=== PATIENT | male | born 1965 | race Caucasian/White ===

== ENCOUNTER → 2019-05-08 | Outpatient (CLI) | payer OTHER ==
[~2019-05-08] MED LIST: CEPH500 PO; HYDACE5 PO; SULTRIDS PO
== END | disposition home or self-care (01) ==
LOC: LAB 18:52 → LAB SHORT 18:52
DX: S61.213A Laceration without foreign body of left middle finger without damage to nail, initial encounter (principal)
CPT/HCPCS: 87070; 87075; 87077; 87186; 87205

== ENCOUNTER 2019-09-07 19:56 | Emergency (ER) | payer OTHER ==
[~2019-09-07] VITALS: Ht 172.7 cm; Wt 77.1 kg
== END 2019-09-07 21:39 | disposition home or self-care (01) ==
LOC: ER 19:56
DX: K43.9 Ventral hernia without obstruction or gangrene (principal); F17.210 Nicotine dependence, cigarettes, uncomplicated
CPT/HCPCS: 99283

== ENCOUNTER 2019-09-25 17:59 | Emergency (ER) | payer OTHER ==
[~2019-09-25] VITALS: Ht 172.7 cm; Wt 81.7 kg
[2019-09-25 20:47] LABS: BASOPHILS ABSOLUTE AUTO 0.09 K/mm3 (0.00-0.23); BASOPHILS PERCENT AUTO 1 % (0-2); EOSINOPHILS ABSOLUTE AUTO 0.25 K/mm3 (0.00-0.68); EOSINOPHILS PERCENT AUTO 2 % (0-6); Hematocrit 49.8 % (37.0-53.0); Hemoglobin 16.3 g/dL (13.5-17.5); IMMATURE GRAN ABSOLUTE AUTO 0.08 K/mm3 (0.00-0.10); IMMATURE GRAN PERCENT AUTO 1 % (0-1); LYMPHOCYTES ABSOLUTE AUTO 2.15 K/mm3 (0.84-5.20); LYMPHOCYTES PERCENT AUTO 18 % (21-46); MONOCYTES PERCENT AUTO 8 % (4-13); Mean Corpuscular HGB 29.1 pg (26.0-34.0); Mean Corpuscular HGB Conc 32.7 g/dL (31.5-36.5); Mean Corpuscular Volume 89 fL (80-100); Mean Platelet Volume 9.5 fL (9.1-12.4); NEUTROPHILS ABSOLUTE AUTO 8.39 K/mm3 (1.96-9.15); NEUTROPHILS PERCENT AUTO 71 % (41-73); Platelet Count 269 K/mm3 (150-400); RDW Coefficient Variation 14.3 % (11.7-14.2); RDW Standard Deviation 46.7 fL (35.1-46.3); White Blood Cell Count 11.86 K/mm3 (4.00-11.30)
[2019-09-25 21:06] LABS: Alanine Aminotransfer (ALT/SGP 33 U/L (12-78); Albumin, Blood 3.9 g/dL (3.4-5.0); Alk Phos 91 U/L (50-136); Anion Gap 4 mmol/L (6-16); Aspartate Aminotrans (AST/SGOT 17 U/L (12-37); Bilirubin, Total 0.3 mg/dL (0.1-1.0); Blood Urea Nitrogen 14 mg/dL (8-24); Bun/Creatinine Ratio 15.5 (12.0-20.0); CO2, Blood 29 mmol/L (21-32); Calcium, Blood 8.6 mg/dL (8.5-10.1); Chloride, Blood 107 mmol/L (98-108); Globulin, Blood 3.9 g/dL (2.2-4.0); Glomerular Filtration Rate >60 (60-); Glucose, Blood 103 mg/dL (70-99); Potassium, Blood 4.4 mmol/L (3.5-5.5); Sodium, Blood 140 mmol/L (136-145); Total Protein, Blood 7.8 g/dL (6.4-8.2)
== END 2019-09-25 21:41 ==
LOC: ER 17:59
PROVIDERS: Physician Assistant
DX: K42.9 Umbilical hernia without obstruction or gangrene (principal); F17.210 Nicotine dependence, cigarettes, uncomplicated
CPT/HCPCS: 36415; 80053; 83605; 85025; 96374; 99283-25; J1170

== ENCOUNTER 2021-12-19 13:57 | Inpatient (IN) | payer OTHER ==
[~2021-12-19] VITALS: Ht 172.7 cm; Wt 79.4 kg
[2021-12-19 15:36] LABS: BASOPHILS ABSOLUTE AUTO 0.06 K/mm3 (0.00-0.23); BASOPHILS PERCENT AUTO 1 % (0-2); EOSINOPHILS ABSOLUTE AUTO 0.21 K/mm3 (0.00-0.68); EOSINOPHILS PERCENT AUTO 2 % (0-6); Hematocrit 50.3 % (37.0-53.0); IMMATURE GRAN ABSOLUTE AUTO 0.03 K/mm3 (0.00-0.10); IMMATURE GRAN PERCENT AUTO 0 % (0-1); LYMPHOCYTES ABSOLUTE AUTO 2.95 K/mm3 (0.84-5.20); LYMPHOCYTES PERCENT AUTO 31 % (21-46); MONOCYTES ABSOLUTE AUTO 0.76 K/mm3 (0.16-1.47); MONOCYTES PERCENT AUTO 8 % (4-13); Mean Corpuscular HGB 29.9 pg (26.0-34.0); Mean Corpuscular HGB Conc 33.8 g/dL (31.5-36.5); Mean Corpuscular Volume 88 fL (80-100); Mean Platelet Volume 10.1 fL (9.1-12.4); NEUTROPHILS ABSOLUTE AUTO 5.51 K/mm3 (1.96-9.15); NEUTROPHILS PERCENT AUTO 58 % (41-73); Platelet Count 292 K/mm3 (150-400); RDW Coefficient Variation 13.7 % (11.7-14.2); RDW Standard Deviation 44.8 fL (35.1-46.3); Red Blood Cell Count 5.69 M/mm3 (4.30-5.90); White Blood Cell Count 9.52 K/mm3 (4.00-11.30)
[2021-12-19 15:42] LABS: Albumin, Blood 4.2 g/dL (3.4-5.0); Bilirubin, Total 0.5 mg/dL (0.1-1.0); Bun/Creatinine Ratio 17.7 (12.0-20.0); Calcium, Blood 9.7 mg/dL (8.5-10.1); Creatinine, Blood 0.85 mg/dL (0.60-1.20); Globulin, Blood 4.1 g/dL (2.2-4.0); Potassium, Blood 4.2 mmol/L (3.5-5.5); Total Protein, Blood 8.3 g/dL (6.4-8.2)
[2021-12-19 16:11] LABS: International Normalized Ratio 1.03; Prothrombin Time Results 10.8 Sec (9.7-11.5)
--- NOTE | 2021-12-19 16:30 | NUR ---
PT ARRIVED FROM ER [facility]. CONSENTED FOR INCARCERATED HERNIA REPAIR BY DR. STEWART IN ER. PT VERY PAINFUL 03/23 AT [facility]. ABLE TO MOVE EXTREMETIES. PRE-OP CARE PER CHECK LIST DONE. PT'S DAD AT .
--- NOTE | 2021-12-19 19:35 | NUR ---
SHIFT SUMMARY PT ARRIVED TO THE FLOOR AT APPROXIMATELY 1835 FROM PACU, POD0 UMBILICAL HERNIA REPAIR. ORIENTED PT TO HIS ROOM AND WNE THROUGH MEDICAL HISTORY, LAID EYES ON INCISION WHICH HAD SMALL SPOT OF BLOOD OUTLINED BY DRILL PRESS OPERATOR HELPER. GAVE WATER AND JELLO PER DIETARY ORDER. PT DENIES PAIN, BP SHOWS HYPERTENSION WHICH WAS RELAYED TO THE SURGEON WHO WILL PUT IN ORDERS TO ADDRESS IT. NO ACUTE EVENTS THIS SHIFT. CALL LIGHT IN REACH, REPORT GIVEN TO NOC RN AT BEDSIDE.
--- NOTE | 2021-12-19 23:51 | NUR ---
PT REQUESTED SLEEPER.REPORTS WAS TAKING REMERON UP UNTIL 2 MO AGO,ALTHOUGH HE CANT STATE DOSE.PT REPORTS WAS IN RETIREMENT X 1 YR UNTIL 2 MONTHS AGO AND WAS PRESCRIBED IT BY RETIREMENT COUNSELOR AND TOOK IT 11 OF THE 12 MONTHS.PT DOES NOT HAVE A PRIMARY CARE DOCTOR STATES OTHER STRESSFUL SITUATIONS AT HOME AND UNABLE TO SLEEP.ALSO REQUESTING NICOTINE PATCH.HX SMOKING [address] STEWART GAVE ORDER FOR ATIVAN PO X1 AND NICOTINE PATCH X1.
--- NOTE | 2021-12-20 06:45 | NUR ---
SUMMARY PT SLEPT QUIETLY TONIGHT AFTER ATIVAN AND NORCO.HTN INITIALLY ON ASSESSMENT WHICH HAS NOT REQUIRED PRN MEDS AND APPEARS RESOLVING.
--- NOTE | 2021-12-20 18:06 | NUR ---
SUMMARY NO ACUTE CHANGES T/O SHIFT. PT HAS REQUIRED NO PAIN MEDS, RATING PAIN NONE TO 1. TOLERATING DIET; ADVANCED TO REGULAR FOR DINNER. GETTING UP INDEPENDENTLY IN ROOM. PASSING FLATUS. CALL LIGHT IN REACH.
--- NOTE | 2021-12-21 04:26 | NUR ---
SHIFT SUMMARY PT HAS RESTED MOST OF THE NIGHT, PT DID COMPLAIN OF ABD PAIN EARLIER THIS MORNING. HE WAS MEDICATED PER EMAR WITH EFFECT. NICOLE DRESSING INTACT TO ABD C/D/I. PT WITHOUT N/V/D. PT STILL HAS NOT HAD A POST OP BM. TOLERATING PO INTAKE AND AMBULATING WITHOUT DIFFICULTY. BED IN LOWEST POSITION, CALL LIGHT WITHIN REACH. D/C TODAY.
--- NOTE | 2021-12-21 16:41 | NUR ---
NO ACUTE CHANGES T/O SHIFT. PT WAS PAINFUL/SORE UPON WAKING THIS AM. MEDICATED PER ORDERS DURING SHIFT FOR PAIN. DENIED N/V. TOLERATING REGULAR DIET. AMBULATED OUTSIDE THIS AFTERNOON AND TOLERATED WELL. REPORTED HAD BM THIS AFTERNOON. NOW LYING IN BED, READING. DENIES ANY NEEDS AT THIS TIME.
--- NOTE | 2021-12-21 20:00 | NUR ---
PT AMB INDEP IN HALLS. WILL DO ASSESSMENT UPON PT RETURN
--- NOTE | 2021-12-22 05:24 | NUR ---
POD 3 S/P UMBILICAL HERNIA REPAIR. PT VSS. NICOLE DRESSING CDI W/SEAL AND SX MAINTAINED. PT REP PAIN MINIMAL, MED FOR PAIN X1 THIS SHIFT W/REP RELIEF. PT BEENA REG PO, DENIED N/V, REP +FLATUS, REPORTED BM EARLIER IN DAY, IS VOIDING URINE W/O DIFFICULTY. PT AMB INDEP IN HALLS, BEENA WELL.
[2021-12-22] MEDS ORDERED: HYDR1TAB94 PO (09:15)
--- NOTE | 2021-12-22 09:30 | NUR ---
DISCHARGE PATIENT TOLERATING PO DIET WELL, DENIES N/V. DRINKING, VOIDING, HAVING BM'S, PASSING GAS. ABDOMINAL PAIN IS MINIMAL AND REPORTED TO BE TOLERABLE PER PATIENT. MIDLINE INCISION W/ MEDIPORE DRESSING IN PLACE, C/D/I. DISCUSSED DISCHARGE INSTRUCTIONS WITH PATIENT, NO QUESTINS/CONCERNS VERBALIZED. SENT DC INSTRUCTIONS, SCRIPTS, & DRESSINGS WITH PATIENT. ESCORTED OUT VIA W/C.
== END 2021-12-22 10:15 | disposition home or self-care (01) | DRG 354 ==
LOC: ER 13:57 → SURS 16:25
PROVIDERS: Emergency Medicine; ADMIT Surgery
PROC: 0WQF0ZZ Repair Abdominal Wall, Open Approach (ICD-10-PCS; principal; 2021-12-19 17:00)
DX: K42.0 Umbilical hernia with obstruction, without gangrene (principal); R18.8 Other ascites; Z20.822 Contact with and (suspected) exposure to COVID-19; F17.210 Nicotine dependence, cigarettes, uncomplicated; Z90.49 Acquired absence of other specified parts of digestive tract; Z87.81 Personal history of (healed) traumatic fracture; Z98.890 Other specified postprocedural states
CPT/HCPCS: 36415; 80053; 85025; 85610; 85730; 96374; 96375; 96376; 99284-25; A9270; J0330; J0690; J1100; J1170; J1650; J1885; J2405; J2704; J3010; J7120